=== PATIENT | male | born 1990 | race Caucasian/White ===

== ENCOUNTER 2016-07-23 20:17 | Emergency (ER) | payer MEDICAID ==
[~2016-07-23] VITALS: Ht 167.6 cm; Wt 67.1 kg
[~2016-07-23 20:17] MED LIST: CIPRO500 MG PO; FLAGYL250 MG PO; IBUPROFEN600 M1 PO; VICODIN 5/500 M1 TAB PO
[2016-07-23 20:47] VITALS: BP 142/81
--- NOTE | 2016-07-23 22:37 | NUR ---
PT TAKEN TO [facility]
--- NOTE | 2016-07-23 22:45 | NUR ---
25Y/M PATIENT PRESENTS TO ED WITH C/O SHAKING AND PALPABLE HEART X 1 MONTH . PT STATES HE TOOK EDIBLE [place], THEN HIS HAND START SHAKING, HIS HEART PALPATE, UNABLE TO FOCUS ON ANYTHING. DENIES N/V/D; SKIN IS PINK/WARM/DRY; AAOX4 WITH EVEN AND STEADY GAIT; LUNGS CLEAR BL; HR EVEN AND REGULAR; PT DENIES ANY FEVER, CP, SOB, OR COUGH AT THIS TIME; PATIENT STATES PAIN OF 0/10 AT THIS TIME; VSS; PATIENT POSITIONED FOR COMFORT; HOB ELEVATED; BEDRAILS UP X2; BED DOWN. ER MD MADE AWARE OF PT STATUS.
--- NOTE | 2016-07-23 22:54 | NUR ---
Dr. Torrez evaluating patient
[2016-07-23] MEDS ORDERED: LORazepam 0.5 MG TAB PO ONE (23:05)
[2016-07-23 23:18] VITALS: BP 130/80
--- NOTE | 2016-07-23 23:19 | NUR ---
Patient discharged with v/s stable. Written and verbal after care instructions given and explained. Patient alert, oriented and verbalized understanding of instructions. Ambulatory with steady gait. All questions addressed prior to discharge. ID band removed. Patient advised to follow up with PMD. Rx of ATIVAN 0.5 MG given. Patient educated on indication of medication including possible reaction and side effects. Opportunity to ask questions provided and answered. BROTHER DR[address] PATIENT HOME.
== END 2016-07-23 23:19 | disposition home or self-care (01) ==
LOC: MED 20:17
DX: F12.10 Cannabis abuse, uncomplicated (principal); F41.9 Anxiety disorder, unspecified; Z91.013 Allergy to seafood